=== PATIENT | male | born 1945 | race Caucasian/White ===

== ENCOUNTER 2017-04-28 07:48 | Day surgery (SDC) | payer MEDICARE, OTHER ==
[2017-04-28] VITALS (8 sets, daily range): BP systolic 107–166; BP diastolic 60–101; PULSE 68–74; RESP 16–18; TEMP 98–98.7; O2SAT 97–98
[~2017-04-28] VITALS: Ht 175.3 cm; Wt 79.5 kg
[2017-04-28] MEDS ORDERED: IOHEXOL 350 MG/ML 100 ML BTL (for Cath Lab) OTHER ONE (07:49)
[2017-04-28] MEDS ORDERED: ASPIRIN 81 MG CHEW TAB PO SCH (08:30)
[2017-04-28] MEDS: NS 1000P @30 MLS/HR (KVO) IV SCH (08:30)
[2017-04-28] MEDS ORDERED: ASPI81CH6 CHEW (08:45)
[2017-04-28 08:58] LABS: AUTOMATED NEUTROPHIL # 3.2 TH/MM3 (1.8-7.7); BASOPHIL % 1.1 % (0.0-2.0); EOSINOPHIL # 0.1 TH/MM3 (0-0.4); EOSINOPHIL % 1.2 % (0.0-4.0); HEMATOCRIT 36.3 % (39.0-51.0); HEMOGLOBIN 12.3 GM/DL (13.0-17.0); LYMPH % 19.2 % (9.0-44.0); LYMPHOCYTE # 0.9 TH/MM3 (1.0-4.8); MEAN CELL VOLUME 76.1 FL (80.0-100.0); MEAN CORPUSCULAR HEMOGLOBIN 25.8 PG (27.0-34.0); MEAN PLATELET VOLUME 8.2 FL (7.0-11.0); MONO % 8.4 % (0.0-8.0); MONOCYTE # 0.4 TH/MM3 (0-0.9); NEUT % 70.1 % (16.0-70.0); PLATELET COUNT 194 TH/MM3 (150-450); RED BLOOD COUNT 4.78 MIL/MM3 (4.50-5.90); RED CELL DISTRIBUTION WIDTH 17.3 % (11.6-17.2); WHITE BLOOD COUNT 4.5 TH/MM3 (4.0-11.0)
[2017-04-28 09:11] LABS: INTERNATIONAL NORMALIZED RATIO 1.1 RATIO; PROTHROMBIN TIME - PATIENT 10.7 SEC (9.8-11.6)
[2017-04-28 09:14] LABS: CALCIUM 8.9 MG/DL (8.5-10.1); CREATININE 1.39 MG/DL (0.60-1.30)
[2017-04-28] MEDS ORDERED: ONDA4TAB7 SL (09:35)
[2017-04-28] MEDS ORDERED: LANTINJ SQ (09:35)
[2017-04-28] MEDS ORDERED: METF850T PO (09:35)
[2017-04-28] MEDS ORDERED: GLIM4TAB PO (09:35)
[2017-04-28] MEDS ORDERED: TOPR100T PO (09:35)
[2017-04-28] MEDS ORDERED: MIRT45TA PO (09:35)
[2017-04-28] MEDS ORDERED: ROSU1TAB10 PO (09:35)
[2017-04-28] MEDS ORDERED: LISI-519 PO (09:35)
[2017-04-28] MEDS ORDERED: PANT40TA3 PO (09:35)
[2017-04-28] MEDS ORDERED: GABA300C5 PO (09:35)
[2017-04-28] MEDS ORDERED: MIDAZOLAM HCL 2 MG/2 ML VIAL ONE (11:19)
[2017-04-28] MEDS ORDERED: HEPARIN SODIUM - IV 10,000 UNITS/10 ML VIAL ONE (11:26)
[2017-04-28] MEDS ORDERED: CLOPIDOGREL 300 MG TAB ONE (11:26)
[2017-04-28] MEDS ORDERED: TIROFIBAN INFUSION INJ 250 ML IV ONE (12:06)
[2017-04-28] MEDS: TIROFIBAN INFUSION INJ 250 ML IV SCH (12:13)
--- NOTE | 2017-04-28 12:38 | CATHPROC ---
Cegal HIS Report Study Information Study Number Admission Scheduled Start Study Start [id number] Apr 28 2017 7:48AM 04/28/2017 Apr 28 2017 10:47AM [facility] Cardiac Catheterization Admit Source Facility Department Other [facility] - Compliance Review Officer Physician and Clinical Staff Initial [facility] [place] Bladder Trimmer Mei Schreiber,RN Recorder Mariusz VALDEZ, Francois Driver RCIS(BS) Procedures Performed Procedure Location (Site) Vessel Name Angiogram LV AO Arch (A1) Aorta Coronary Angiograms LCA Left Coronary Coronary Angiograms RCA Right Coronary Coronary Angiograms ALEXANDER Graft Left Coronary Coronary Angiograms SVG-RCA Right Coronary L Heart Cath LV Gram-hand inj. LV LV Ventricle PTCA RCA Prox Right Coronary Stent RCA Dist Right Coronary Stent RCA Prox Right Coronary Wire insertion Fem Art (right) Femoral Art Equipment Time Tree Trimming Supervisor Description Size Mfg Part Number Used/Scraped [id number] 12:06 [employer] WIRE, ASAHI GRANDSLAM 180CM 180CM Used *[id number] 27038-96 11:52 [employer] WIRE, ASAHI PROWATER 180CM 180CM Used *[id number] 62994-53 11:35 [employer] WIRE, ASAHI PROWATER 180CM 180CM Used *[id number] TRANSDUCER, TRUWAVE [id number] 11:06 VÁZQUEZ PAT * Used W/LEILA *[id number] 12:04 [employer] B[employer]ON, 3.5 8MM EMERGE MR 3.5 8MM [id number] Used [id number] *[id number] 538-448 *[id number] 538-420 *[id number] [id number] *[id number] 538-421 *[id number] 538-472 *[id number] 538-453S *[id number] 11:06 [email or web address] INDUSTRIES PACK, CCL CUSTOM * Used *[id number] 11:06 [email or web address] PACER PEN, SKIN DUAL W/ RULER * Used *[id number] 11:35 [employer] STENT, 4.0 9 INTEGRITY 4.0 9 [id number] Used 12:10 [employer] STENT, 4.0 9 INTEGRITY 4.0 9 [id number] Used [id number] 11:35 [employer] 30 AUDREY INDEFLATOR Used *[id number] 11:06 [employer] WIRE, 3MMJ .035 180CM 180CM Used *[id number] 11:06 NAMIC MANIFOLD, 4 PORT * Used *[id number] 11:41 NAMIC TUBING, HIGH PRESSURE 20" 20" Used *[id number] 11:06 NYCOMED OMNIPAQUE, 350 MG, 150ML 150ML [id number] Used 11:47 NYCOMED OMNIPAQUE, 350 MG, 150ML 150ML [id number] Used 11:47 NYCOMED OMNIPAQUE, 350 MG, 150ML 150ML [id number] Used [id number] 11:06 [place] [employer],WARM AIR CCL * Used *[id number] 11:06 TERUMO MED[employer] SHEATH, FR4 TERUMO (10CM) FR 4 Used *[id number] 11:35 [employer] MEDICAL SHEATH, FR6 TERUMO (10CM) FR 6 Used *[id number] Equipment Model, Serial, Lot Number and Expiration Data Description Model Number Serial Number Lot Number Expiration Date STENT, 4.0 9 INTEGRITY [id number] 04-12-2018 STENT, 4.0 9 INTEGRITY [id number] 10-26-2018 History: Current Medications Medication Dosage/Unit Route Frequency Last Date/Time Taken Statins (any) Beta Cristina ASA 04/28/2017 History: Risk Factors Family History of Hypertension Dyslipidemia Previous NH Previous Heart Failure Premature CAD Yes Yes No No No Prior Valve Prior PCI Prior CABG Prior CABGDate Surgery No No Yes 02/27/2003 Cerebrovascular Peripheral Artery Chronic Lung On Dialysis Diabetes Diabetes Therapy Disease Disease Disease No No No No Yes Insulin History: Stress Tests Stress or Imaging Studies Performed Yes Standard Exercise Stress Test No Stress Echo No Stress Test SPECT Stress Test SPECT Result Stress Test SPECT Ischemia Risk/Extent Yes Positive Intermediate Stress Test CMR No Cardiac CTA Coronary Calcium Score No No History: NH/CV Data Previous CABG Date 02/27/2003 History: Other Current Smoker Method Yes Cigars Labs Hgb (g/dl) Hct (%) WBC (l/cumm) Platelets (thousands) 11.60-17.00 35.00-51.00 4.00-11.00 150.00-450.00 12.3 36.3 4.5 194 Glucose (mg/dl) BUN (mg/dl) Creatinine (mg/dl) BUN:Creatinine (1:x) 74.00-106.00 7.00-18.00 0.50-1.30 10.00-20.00 103 17 1.4 12.1 Na (meq/l) K (meq/l) 136.00-145.00 3.50-5.10 141 4.5 Medication Medication Total Dose (Bolus/Oral) Medication Total Dosage/Unit 1% XYLOCAINE 20 mL AGGRASTAT BOLUS 42 mL FENTANYL 12.5 mcg HEPARIN 5600 units PLAVIX 600 mg VERSED 1 mg Medications (Bolus/Oral) Medication Time Given Dosage/Unit Administered By Reason VERSED 04/28/2017 11:19:50 AM 1 mg Mei Schreiber 1 mg VERSED given in lab by Mei Schreiber, COURTNEY via Peripheral IV. Ordered by Bay Blount. 1% XYLOCAINE 04/28/2017 11:20:30 AM 20 mL Bay Blount 20 mL 1% XYLOCAINE given in lab by Bay Blount in Right Groin via Subcutaneous. Ordered by Bay Casas. FENTANYL 04/28/2017 11:21:23 AM 12.5 mcg Mei Schreiber 12.5 mcg FENTANYL given in lab by Mei Schreiber RN via Peripheral IV. Ordered by Bay Blount. HEPARIN 04/28/2017 11:47:53 AM 5600 units Mei Schreiber 5600 units HEPARIN given in lab by Mei Schreiber RN via Peripheral IV. Ordered by Bay Blount . AGGRASTAT BOLUS 04/28/2017 12:13:33 PM 42 mL Mei Schreiber 42 mL AGGRASTAT BOLUS given in lab by Mei Schreiber, COURTNEY via Peripheral IV. Ordered by Arpan Blount. PLAVIX 04/28/2017 12:19:05 PM 600 mg Mei Schreiber 600 mg PLAVIX given by Mei Schreiber RN via Oral. Ordered by Bay Blount. Medication (Drip) Medication Time Given Dosage/Unit Concentration/Unit Diluent (ml) Solution AGGRASTAT DRIP 04/28/2017 12:15:47 PM 0.157 mcg/kg/min 12.5 mg 250 NaCl .9 0.157 mcg/kg/min AGGRASTAT DRIP given by Mei Schreiber RN via Peripheral IV. Pump/Drip Flow = 15 m l/hr using NaCl .9 with a concentration of 12.5 mg in 250 ml. Ordered by Bay Blount. Initial Case Assessment Cardiovascular HR NIBP 73 173/111 Edema Present Skin color Skin None Normal Warm Dry Circulatory - Right Pulses Dorsalis Pedis Femoral 2 3 Scale (0,1,2,3,4,d) Circulatory - Left Pulses Dorsalis Pedis Femoral 2 3 Scale (0,1,2,3,4,d) Neurological State Oriented to time-place- Alert Moves all extremities person Respiration - General Respiration Rate SpO2 (%) (B/min) 15 99 Chronological Log Time Study Chronological Log 10:50:01 Patient arrived via Bed. 10:50:02 Patient Name, D.O.B, / Armband Verified By R.N. 10:50:03 Consent signed by the physician and the patient and verified by the Compliance Review Officer staff. 10:50:03 Pre-op and post- op instructions given; patient acknowledges understanding of instructions. 10:50:04 Presedation assessment performed by Compliance Review Officer RN. 10:50:05 Immediate Presedation assesment performed by physician. 10:50:05 Patient has been NPO for More than 6Hrs. 10:50:07 Skin Breakdown- PATIENT REPORTS NONE 10:50:08 Patient Warmer Placed on the Table. 10:50:10 Hazel Prominences Protected 10:50:10 A # 20 IV was noted in the Antecubital (left). Grade = 0 10:51:17 History and physical on the chart or being dictated. Vitals capture started with the following parameters, Patient=Adult, Interval=5 min, Initial Pr davnvb=935 mmHg, 10:58:26 Deflation Rate=5 mmHg, Cuff placed on Left Arm 10:59:49 HR=87 bpm, ZVTQ=089/111 mmhg, SpO2=99.0 %, Resp=15 B/min, Pain=0, Emile=10, Rangel=2 11:01:39 paged 11:04:09 HR=72 bpm, GQGF=448/100 mmhg, SpO2=99.0 %, Resp=12 B/min, Rangel=2 11:04:23 Pressure channel 1 zeroed. Assessment: Initial Case, HR=73 BPM, JNDR=604/111 mmhg, Edema=None, Color=Normal, Skin = Warm, Dry Right Pulses: Greg Ped=2, Femoral=3 11:07:35 Left Pulses: Greg Ped=2, Femoral=3 Neurological: State=Alert, Ox3, VILLEGAS Respiration: Resp=15 B/min, SpO2=99 % 11:09:08 HR=71 bpm, NNAI=744/95 mmhg, SpO2=99.0 %, Resp=12 B/min, Rangel=2 11:09:31 MD responded 11:09:43 Reference ECG taken 11:14:09 HR=69 bpm, EGAN=677/105 mmhg, SpO2=98.0 %, Resp=16 B/min, Rangel=2 11:16:23 MD arrived. 11:19:06 HR=70 bpm, BKTE=073/98 mmhg, SpO2=98.0 %, Resp=14 B/min, Rangel=2 Time Out. Correct patient, correct procedure, correct physician, power injector loaded, or not loaded with contrast with 11:19:49 surgical team present. Time Out Concurred by MD and individual staff in procedure. 11:19:50 1 mg VERSED given in lab by Mei Schreiber, COURTNEY via Peripheral IV. Ordered by Arpan Blount. 11:20:27 Case Start 20 mL 1% XYLOCAINE given in lab by Bay Blount in Right Groin via Subcutaneous. Ordered by Jose Alejandro 11:20:30 Bay. 11:21:06 Access site was Right Femoral Artery. 11:21:16 A SHEATH, FR4 TERUMO (10CM) FR 4 was advanced into the Fem Art (right) using the Modified S eldinger technique. 11:21:23 12.5 mcg FENTANYL given in lab by Mei Schreiber, COURTNEY via Peripheral IV. Ordered by Bay Betts. 11:22:03 A JR 4.0 INFINITI CATHETER FR 4 was advanced over a wire. contrast was used for injections. Recorded Pressure: LV, HR=73, Condition=Condition 1 11:22:31 (Left Ventricle) LV 156/21/34 Recorded Pressure: LV, Ao, HR=72, Condition=Condition 1 11:22:55 (Left Ventricle) LV 166/2/12, (Aorta) Ao 167/94/124 11:23:38 The LV was manually injected with 10 cc's and visualized. OMNIPAQUE, 350 MG, 150ML 150ML us ed. 11:24:09 HR=70 bpm, LXVB=080/93 mmhg, SpO2=98.0 %, Resp=10 B/min, Rangel=2 11:24:37 The RCA was injected and visualized at various angles. contrast used. 11:29:06 HR=73 bpm, XPSD=929/94 mmhg, SpO2=99.0 %, Resp=12 B/min, Rangel=2 11:31:00 The ALEXANDER Graft was injected and visualized at various angles. IT IS OCCLUDED After removing the current catheter a JL 4.0 INFINITI CATHETER FR 4 was advanced over a WIRE, 3 MMJ .035 180CM 11:32:14 180CM. 11:32:55 The LCA was injected and visualized at various angles. contrast used. 11:33:55 Catheter was removed 11:34:07 HR=71 bpm, RWGJ=690/90 mmhg, SpO2=98.0 %, Resp=13 B/min, Rangel=2 11:36:30 A PIGTAIL ANG. INFINITI CATHETER FR 4 was advanced over a wire. contrast was used for injec tions. 11:37:08 The AO Arch (A1) was injected at 20 cc/sec for a total of 30. contrast used. 11:39:01 Catheter was removed 11:39:04 HR=68 bpm, GRES=805/95 mmhg, SpO2=99.0 %, Resp=19 B/min, Rangel=2 11:39:41 A AR MOD INFINITI CATHETER FR 4 was advanced over a wire. contrast was used for injections. 11:43:13 Catheter was removed 11:43:34 A AL 1 INFINITI CATHETER FR 4 was advanced over a wire. contrast was used for injections. 11:44:07 HR=67 bpm, DMJU=952/91 mmhg, SpO2=99.0 %, Resp=18 B/min, Rangel=2 11:45:35 A LCB INFINITI FR 4 was advanced over a wire. contrast was used for injections. 11:47:12 The SVG-RCA was injected and visualized at various angles. contrast used. 11:47:53 5600 units HEPARIN given in lab by Mei Schreiber RN via Peripheral IV. Ordered by Bay Weinberg. A SHEATH, FR6 TERUMO (10CM) FR 6 was exchanged in the Fem Art (right). This was necessary in or kaitlin to 11:48:47 accomodate a larger catheter. 11:48:59 A JR 4.0 GUIDE CATHETER FR 6 was advanced over a wire. contrast was used for injections. 11:49:06 HR=66 bpm, RXCC=472/93 mmhg, ElI5=918.0 %, Resp=12 B/min, Rangel=2 11:51:00 A WIRE, ASAHI PROWATER 180CM 180CM was inserted via Fem Art (right). 11:51:47 Wire removed 11:51:53 A WIRE, ASAHI PROWATER 180CM 180CM was inserted via Fem Art (right). 11:52:11 Activated Clotting Time Drawn 11:54:07 HR=67 bpm, DYCK=670/85 mmhg, SpO2=99.0 %, Resp=18 B/min, Rangel=2 An STENT, 4.0 9 INTEGRITY 4.0 9 Bare Metal Stent was inserted through a JR 4.0 GUIDE CATHETER F R 6 over a 11:55:08 WIRE, ASAHI PROWATER 180CM 180CM. 11:59:00 HR=69 bpm, RMOR=822/90 mmhg, MpK8=408.0 %, Resp=18 B/min, Rangel=2 11:59:37 ACT (Normal Range 90-180) = 370 12:00:16 Stent not deployed. Stent removed and intact. A BALLOON, 3.5 8MM EMERGE MR 3.5 8MM was inserted over WIRE, ASAHI PROWATER 180CM 180CM via the RCA 12:02:17 Prox. A BALLOON, 3.5 8MM EMERGE MR 3.5 8MM over a WIRE, ASAHI PROWATER 180CM 180CM in the RCA Prox wa s 12:02:45 inflated using a 30 AUDREY INDEFLATOR at 12 audrey for 20 sec. 12:03:09 Balloon Removed. 12:04:06 HR=70 bpm, LCLL=335/84 mmhg, SpO2=99.0 %, Resp=18 B/min, Rangel=2 12:04:11 An implantable Bare Metal Stent was inserted through a JR 4.0 GUIDE CATHETER FR 6 over a wi re. 12:05:23 Stent not deployed. Stent removed and intact. 12:06:17 A WIRE, ASAHI GRANDSLAM 180CM 180CM was inserted via Fem Art (right). An STENT, 4.0 9 INTEGRITY 4.0 9 Bare Metal Stent was inserted through a JR 4.0 GUIDE CATHETER F R 6 over a 12:08:03 WIRE, ASAHI PROWATER 180CM 180CM. A STENT, 4.0 9 INTEGRITY 4.0 9 was deployed using a 30 AUDREY INDEFLATOR at 16 atmospheres for 15 seconds in the 12:09:01 RCA Dist. 12:09:09 HR=70 bpm, IPYX=346/90 mmhg, BoN2=408.0 %, Resp=19 B/min, Rangel=2 12:11:14 Delivery device removed An STENT, 4.0 9 INTEGRITY 4.0 9 Bare Metal Stent was inserted through a JR 4.0 GUIDE CATHETER F R 6 over a 12:11:17 WIRE, ASAHI PROWATER 180CM 180CM. A STENT, 4.0 9 INTEGRITY 4.0 9 was deployed using a 30 AUDREY INDEFLATOR at 16 atmospheres for 12 seconds in the 12:11:57 RCA Prox. 12:12:19 Delivery device removed 12:13:18 Wires removed 12:13:33 42 mL AGGRASTAT BOLUS given in lab by Mei Schreiber RN via Peripheral IV. Ordered by Bay Wheatley. 12:13:45 Case End 12:14:07 In the Fem Art (right) the SHEATH, FR6 TERUMO (10CM) FR [address] by Lou Lee RCIS(). 12:14:10 HR=70 bpm, XFIE=056/87 mmhg, SpO2=98.0 %, Resp=14 B/min, Rangel=2 0.157 mcg/kg/min AGGRASTAT DRIP given by Mei Schreiber RN via Peripheral IV. Pump/Drip Flow = 15 ml/hr using 12:15:47 NaCl .9 with a concentration of 12.5 mg in 250 ml. Ordered by Bay Blount. 12:17:59 Sterile dressing applied to site 12:18:02 No case complications noted. 12:18:08 Bedside Report will be given. 12:18:12 Holding Area notified of successful intervention. 12:19:05 600 mg PLAVIX given by Mei Schreiber, RN via Oral. Ordered by Bay Blount. 12:19:11 IJQX=118/92 mmhg 12:19:30 Vitals capture stopped. 12:19:59 DOCU called. Spoke to OSCAR VALDEZ 12:20:15 A Left Heart Cath was performed. 12:21:22 ACT (Normal Range 90-180) = 275 12:23:28 Patient moved to [facility] End Study - Contrast Media Used In Study Contrast Total Opened (mL) Total Used (mL) Total Wasted (mL) Omnipaque 200 195 5 End Study - Maximum Contrast Load Max Contrast Load (mL) 283.9 End Study - Radiation Exposure Fluoro Time (minutes) 24.7 End Study - Patient Disposition Complications Transferred To No Compliance Review Officer Holding
[2017-04-28] MEDS ORDERED: MISC INFORMATION XX ONE (13:15)
[2017-04-28] MEDS ORDERED: SODIUM CHLORIDE 0.9% FLUSH 10 ML FLUSH IV FLUSH PRN (13:15)
[2017-04-28] MEDS ORDERED: CLOPIDOGREL 300 MG TAB PO ONE (13:15)
--- NOTE | 2017-04-28 17:44 | MR ---
cc: Bay Blount MD 04/28/2017 Left heart catheterization, left ventriculography, coronary angiography, saphenous vein angiography, ALEXANDER angiography, aortic root angiography, PCI with bare-metal stent of the mid to distal right coronary artery and PCI with bare-metal stent of the proximal right coronary artery. INDICATION: Unstable angina. [place] Cardiovascular Society class III angina. New onset cardiac symptom of chest pain, pressure like, while attending the [place] [id number]. Coronary artery disease status post CABG. ST segment depression of 1-2 mm in lead II, aVF, V3, V4, V5, V6, while undergoing Kain protocol. Moderate size reversible defect on the posterior wall, inferior wall and apical wall, and tobacco use. Patient was brought to the cardiac catheterization laboratory and prepped and draped in the usual sterile fashion, 10 mL of 1% lidocaine was used to locally anesthetize the right common femoral artery. A 4 Slovak sheath placed in the right common femoral artery. A 4 Slovak JR4, JL4, AR1, AL1, LCB and pigtail catheters were used to perform let and right coronary angiography. Left ventriculography, saphenous vein angiography, ALEXANDER angiography and aortic root angiography. FINDINGS: The LV pressures 160/19-20. Ejection fraction is 70%. The right coronary artery is large and dominant with a reference vessel diameter of 4.5 mm. The proximal segment has a very complex shelf-like plaque in the proximal segment with a 70-75% stenosis that appears slit-like just at the AV margi branch. The mid to distal segment has a focal 75% stenosis. The ALEXANDER is atretic and occluded in the proximal mid segment. The left main coronary artery has a ostial 75-80% stenosis, then supplies a small first diagonal artery, a medium size first obtuse marginal vessel and 2 smaller second and third obtuse marginal vessels, each of which have mild disease. The LAD has severe diffuse disease up to 80%, then is occluded in the proximal mid segment. There appears to be some suggestion of competitive flow at the second septal electric motor and generator assembler. Aortic root angiography reveals a single vein graft going to the right PDA. Vein graft to the right PDA is relatively small and atretic, and supplies a very small posterolateral artery, probably 0.5 mm in diameter with no significant obstructive disease. I used the AR1, AL1, LCB catheter and JR4 and could not selectively engage the graft to the LAD. The patient has a moderate size reversible defect in the posterior wall, inferior wall and apical wall with 1-[address] segment depression in the inferior lateral leads on exercise treadmill test and I suspect that both the proximal and the mid to distal right coronary artery are the culprit lesions, as this would correspond to that distribution anatomically. Therefore, given the new onset of chest pain, I did think it was medically necessary to proceed with PCI. My original plan was to simply direct stent the mid to distal right coronary artery, as on initial review of the angiograms, the proximal lesion did not appear to be high grade; however, I had a lot of difficulty simply crossing the lesion with a Prowater simply due to the very complex irregularity of the plaque and the plaque also had a shelf-like morphology to it with a shelf pointing toward the catheter. Therefore, the wire tended to get stick in this shelf. I then attempted to deliver a 4.0, 9 Integrity stent, but despite multiple attempts with deep seating of the guide, I could not cross the proximal lesion with a 4.0, 9 Integrity stent. I then, on further review, noticed that again, the proximal plaque had a slit-like lesion and probably higher grade than it initially appeared, and with some still frames, it did appear to be 75%. Therefore, I predilated it with 3.5, 8 Emerge Balloon to 12 atmospheres. I was then able to deliver the 4.0, 9 Integrity stent past this lesion; however, due to wire biasing on the outer curvature, I could not advance the stent to the mid to distal lesion. Therefore, I placed a second 0.014 [place] shari wire with some degree of difficulty, again, trying to cross the proximal right coronary artery plaque; however, I was able to successfully deliver it to the distal vessel. Then, with difficulty, I delivered the 4.0, 9 Integrity stent to the mid to distal lesion. I pulled the [place] 0.014 wire back proximal to the stent, deployed the stent 1 inflation at 16 atmospheres for 20 seconds. Stenosis went from 75% to 0% with ERIC 3 flow. I then, based again on the irregularity, complexity and shelf-like morphology of the proximal plaque, I did think it was medically necessary to place a stent after balloon angioplasty just to protect against any unseen dissection, which there were no seen dissections. I placed a 4.0, 9 Integrity stent here as well, removed the 0.014 [place] wire, deployed the stent with 1 inflation at 16 atmospheres for 20 seconds. Stenosis went from 75% to 0% with ERIC 3 flow. CONCLUSION: 1. New onset cardiac symptom of chest pain with minimal exertion, [place] Cardiovascular Society class III angina, unstable angina, 1-[address] segment depression in the inferior lateral leads on exercise treadmill testing with moderate size reversible defect in the posterior wall, inferior wall and apical wall, culprit 75% stenoses in the proximal and mid to distal right coronary artery as detailed above. 2. Severe 3-vessel coronary artery disease. 3. At least 1 of 3 graft patent. Note, with selective and nonselective angiography, I could not image a graft to the left anterior descending, but there did appear to be possible competitive flow seen on the left main imaging and the anterior wall had no wall motion abnormality, suggesting that the LAD was patent to the anterior wall. There is no reversible defect in the anterior wall imaging as well, again, suggesting probably a patent graft to the LAD. 4. Hyperdynamic left ventricular systolic function, ejection fraction 70%. Note, prior to the procedure, patient was given 70 units/kg of heparin. ACT was 275. RECOMMEND: Aggrastat bolus and drip per protocol. Plavix 600 mg p.o. load and then 75 mg a day for 12-15 months. Continue aspirin 162 mg daily. Will also continue Crestor 40 mg daily, metoprolol ER 100 mg daily. I have instructed the patient myself personally to hold his metformin x 48 hours post procedure and strongly recommend smoking cessation. MD EVELINE Parada/SAI , 12:29 PM , 05:43 PM
--- NOTE | 2017-04-28 17:47 | EKG ---
Date Performed: 04/28/2017 Time Performed: 09:08:36 PTAGE: 72 years EKG: Sinus rhythm Normal ECG NO PREVIOUS TRACING DOCTOR: Barbie Mooney Interpretating Date/Time 04/28/2017 17:45:33
[2017-04-28] MEDS: SODIUM CHLORIDE 0.9% FLUSH 10 ML FLUSH IV FLUSH SCH (21:00)
[2017-04-28] MEDS ORDERED: MIRTAZAPINE 15 MG TAB PO SCH (22:30)
[2017-04-28] MEDS ORDERED: ZOLPIDEM TARTRATE 10 MG TAB PO SCH (22:30)
[2017-04-28] MEDS ORDERED: GABAPENTIN 300 MG CAP PO SCH (22:30)
[2017-04-29] VITALS (13 sets, daily range): BP systolic 125; BP diastolic 77–80; PULSE 65–98; RESP 18–19; TEMP 98–98.5; O2SAT 94–98
[2017-04-29] MEDS: TIROFIBAN INFUSION INJ 250 ML IV SCH (02:24)
[2017-04-29 04:26] LABS: AUTOMATED NEUTROPHIL # 4.2 TH/MM3 (1.8-7.7); BASOPHIL % 0.8 % (0.0-2.0); EOSINOPHIL # 0.1 TH/MM3 (0-0.4); EOSINOPHIL % 0.9 % (0.0-4.0); HEMATOCRIT 33.6 % (39.0-51.0); HEMOGLOBIN 10.9 GM/DL (13.0-17.0); LYMPH % 18.7 % (9.0-44.0); LYMPHOCYTE # 1.1 TH/MM3 (1.0-4.8); MEAN CELL VOLUME 76.2 FL (80.0-100.0); MEAN CORPUSCULAR HEMOGLOBIN 24.7 PG (27.0-34.0); MEAN CORPUSCULAR HGB CONC 32.4 % (32.0-36.0); MEAN PLATELET VOLUME 8.1 FL (7.0-11.0); MONO % 8.9 % (0.0-8.0); MONOCYTE # 0.5 TH/MM3 (0-0.9); NEUT % 70.7 % (16.0-70.0); PLATELET COUNT 196 TH/MM3 (150-450); RED BLOOD COUNT 4.42 MIL/MM3 (4.50-5.90); RED CELL DISTRIBUTION WIDTH 17.5 % (11.6-17.2)
[2017-04-29 04:49] LABS: BICARBONATE 26.5 MEQ/L (21.0-32.0); CALCIUM 8.4 MG/DL (8.5-10.1); CREATININE 1.03 MG/DL (0.60-1.30)
[2017-04-29 04:52] LABS: CHOLESTEROL/ HDL RATIO 4.59 RATIO; HDL CHOLESTEROL 27.4 MG/DL (40.0-60.0)
[2017-04-29] MEDS ORDERED: CLOPIDOGREL 75 MG TAB PO SCH (09:00)
[2017-04-29] MEDS ORDERED: ASPIRIN 81 MG CHEW TAB PO SCH (09:00)
[2017-04-29] MEDS: SODIUM CHLORIDE 0.9% FLUSH 10 ML FLUSH IV FLUSH SCH (09:25)
[2017-04-29] MEDS: NS 1000P @30 MLS/HR (KVO) IV SCH (09:26)
[2017-04-29] MEDS ORDERED: PLAV75TA29 PO (09:52)
== END 2017-04-29 13:50 | disposition home or self-care (01) ==
LOC: HDOC 07:48 → HDIC 07:48 → HCIS 16:10 → HDOC 04-29 13:50
PROVIDERS: ATTEND Internal Medicine Interventional Cardiology
DX: I25.110 Atherosclerotic heart disease of native coronary artery with unstable angina pectoris (principal); E11.9 Type 2 diabetes mellitus without complications; F17.200 Nicotine dependence, unspecified, uncomplicated; Z79.84 Long term (current) use of oral hypoglycemic drugs; Z79.82 Long term (current) use of aspirin
CPT/HCPCS: 80048; 80061; 82550; 85002; 85025; 85610; 85730; 92928; 93005; 93459; 93567; 99152; 99153; C1725; C1769; C1876; C1887; C1893; J1644; J2250; J3010; J3246; J7030; 85347; Q9967